=== PATIENT | male | born 1965 | race Caucasian/White ===

== ENCOUNTER 2020-06-02 16:01 | Inpatient (IN) | payer BC ==
[2020-06-02] MEDS ORDERED: ACETAMINOPHEN 1000 MG/100 ML VIAL (NON FORMULARY) IVPB ONE (18:22)
[2020-06-02] MEDS ORDERED: DEXAMETHASONE SOD PHOSPHATE 20 MG/5 ML VIAL IVPB ONE (18:30)
[2020-06-02 19:22] LABS: BASO % 0.2 % (0-2.0); EOS % 1.1 % (0-4.5); HEMATOCRIT 41.6 % (35.4-49); HEMOGLOBIN 13.9 GM/dL (11.7-16.9); LYMPH % 7.4 % (8-40); MCH 28.5 pg (25.7-33.7); MCHC 33.4 g/dl (32.0-35.9); MEAN CELL VOLUME 85.4 fl (80-96); MEAN PLT VOLUME 8.4 fl (7.5-11.1); MONO % 3.2 % (3.8-10.2); NEUT % 88.1 % (42.8-82.8); PLATELET COUNT 365 K/MM3 (134-434); RBC 4.87 M/mm3 (4.00-5.60); RDW 13.3 % (11.9-15.9); WHITE BLOOD COUNT 9.5 K/mm3 (4.0-10.0)
[2020-06-02 19:29] LABS: INR 1.33 (0.83-1.09); PROTHROMBIN TIME (PATIENT) 16.2 SEC (9.7-13.0)
[2020-06-02 19:31] LABS: ACTIVATED PTT 29.3 SECONDS (25.2-36.5)
[2020-06-02] MEDS ORDERED: ACETAMINOPHEN INJECTION 100 ML IVPB ONE (19:34)
[2020-06-02] MEDS ORDERED: DEXAMETHASONE SOD PHOSPHATE 10 MG/1 ML VIAL ONE (19:34)
[2020-06-02 19:41] LABS: CHLORIDE 98 mmol/L (98-107); POTASSIUM 4.4 mmol/L (3.5-5.1); SODIUM 133 mmol/L (136-145)
[2020-06-02 19:43] LABS: CALCIUM 8.5 mg/dL (8.5-10.1)
[2020-06-02 19:44] LABS: ANION GAP 9 MMOL/L (8-16); BLOOD UREA NITROGEN 15.3 mg/dL (7-18); CO2 26 mmol/L (21-32); GLUCOSE,RANDOM 248 mg/dL (74-106); MAGNESIUM 2.3 mg/dL (1.8-2.4)
[2020-06-02 19:47] LABS: SGOT/AST 54 U/L (15-37); SGPT/ALT 55 U/L (13-61)
[2020-06-02 19:48] LABS: BILIRUBIN,TOTAL 0.8 mg/dL (0.2-1)
[2020-06-02 19:49] LABS: ALK PHOS 82 U/L (45-117); N-TERMINAL BNP 24.4 pg/ml (5-125); TOT PROT 7.7 g/dl (6.4-8.2)
[2020-06-02 20:01] LABS: VENOUS BASE EXCESS -1.1 mmol/L (-2-2); VENOUS O2 SATURATION 89.3 % (70-80); VENOUS PCO2 37.9 mmHg (38-52); VENOUS PH 7.406 (7.310-7.410)
[2020-06-02 21:11] LABS: LDH 306 U/L (87-246)
[2020-06-03] MEDS ORDERED: DEXAMETHASONE SOD PHOSPHATE 10 MG/1 ML VIAL ONE (01:21)
[2020-06-03] MEDS: DEXAMETHASONE SOD PHOSPHATE 4 MG/1 ML VIAL IVPUSH SCH ×2 (01:29→10:54)
[2020-06-03 05:07] VITALS: BMI 30.9
[2020-06-03] MEDS: INSULIN SLIDING SCALE (NOVOLOG) 1 VIAL SQ SCH ×4 (06:51→21:11)
[2020-06-03 07:55] LABS: BASO % 0.2 % (0-2.0); HEMATOCRIT 37.7 % (35.4-49); HEMOGLOBIN 12.7 GM/dL (11.7-16.9); LYMPH % 9.6 % (8-40); MCH 28.4 pg (25.7-33.7); MCHC 33.6 g/dl (32.0-35.9); MEAN CELL VOLUME 84.6 fl (80-96); MEAN PLT VOLUME 8.3 fl (7.5-11.1); MONO % 2.4 % (3.8-10.2); NEUT % 87.8 % (42.8-82.8); PLATELET COUNT 369 K/MM3 (134-434); RBC 4.46 M/mm3 (4.00-5.60); RDW 12.9 % (11.9-15.9)
[2020-06-03 07:57] LABS: POTASSIUM 4.4 mmol/L (3.5-5.1)
[2020-06-03 07:59] LABS: ALBUMIN 2.6 g/dl (3.4-5.0)
[2020-06-03 08:00] LABS: CALCIUM 8.7 mg/dL (8.5-10.1)
[2020-06-03 08:01] LABS: BLOOD UREA NITROGEN 18.2 mg/dL (7-18)
[2020-06-03 08:03] LABS: CREATININE 0.8 mg/dL (0.55-1.3)
[2020-06-03 08:04] LABS: BILIRUBIN,TOTAL 0.7 mg/dL (0.2-1)
[2020-06-03 08:05] LABS: TOT PROT 6.9 g/dl (6.4-8.2)
[2020-06-03] MEDS: FAMOTIDINE 20 MG TABLET PO SCH ×2 (10:55→21:11)
[2020-06-03] MEDS: CHOLECALCIFEROL (VIT D3) 1,000 UNIT (25 MCG) TABLET PO SCH (10:55)
[2020-06-03] MEDS: ENOXAPARIN NA (PORCINE) 40 MG/0.4 ML DISP.SYRIN SQ SCH (10:55)
[2020-06-03] MEDS: ASCORBIC ACID 500 MG TABLET (FP) PO SCH ×2 (10:55→21:11)
[2020-06-03] MEDS: ZINC SULFATE 220 MG CAPSULE (FP) PO SCH (10:55)
[2020-06-03] MEDS ORDERED: REMDESIVIR 200 MG in SODIUM CHLORIDE 210 ML IVPB ONE (15:00)
[2020-06-04] MEDS: metFORMIN HCL 500 MG TABLET (FP) PO SCH ×2 (06:53→16:59)
[2020-06-04] MEDS: INSULIN SLIDING SCALE (NOVOLOG) 1 VIAL SQ SCH ×4 (06:53→21:34)
[2020-06-04 08:59] LABS: BASO % 0.1 % (0-2.0); HEMATOCRIT 36.8 % (35.4-49); HEMOGLOBIN 12.4 GM/dL (11.7-16.9); LYMPH % 7.3 % (8-40); MCH 28.8 pg (25.7-33.7); MCHC 33.7 g/dl (32.0-35.9); MEAN CELL VOLUME 85.3 fl (80-96); MONO % 5.4 % (3.8-10.2); NEUT % 87.2 % (42.8-82.8); PLATELET COUNT 408 K/MM3 (134-434); RBC 4.31 M/mm3 (4.00-5.60); RDW 12.7 % (11.9-15.9); WHITE BLOOD COUNT 16.9 K/mm3 (4.0-10.0)
[2020-06-04 09:28] LABS: POTASSIUM 4.7 mmol/L (3.5-5.1)
[2020-06-04 09:30] LABS: ALBUMIN 2.5 g/dl (3.4-5.0); CALCIUM 8.5 mg/dL (8.5-10.1)
[2020-06-04 09:31] LABS: BLOOD UREA NITROGEN 22.5 mg/dL (7-18)
[2020-06-04 09:33] LABS: CREATININE 0.9 mg/dL (0.55-1.3)
[2020-06-04 09:35] LABS: BILIRUBIN,TOTAL 0.5 mg/dL (0.2-1); TOT PROT 6.2 g/dl (6.4-8.2)
[2020-06-04] MEDS: ENOXAPARIN NA (PORCINE) 40 MG/0.4 ML DISP.SYRIN SQ SCH (10:33)
[2020-06-04] MEDS: DEXAMETHASONE SOD PHOSPHATE 4 MG/1 ML VIAL IVPUSH SCH (10:33)
[2020-06-04] MEDS: FAMOTIDINE 20 MG TABLET PO SCH ×2 (10:34→21:33)
[2020-06-04] MEDS: CHOLECALCIFEROL (VIT D3) 1,000 UNIT (25 MCG) TABLET PO SCH (10:34)
[2020-06-04] MEDS: LOSARTAN POTASSIUM 50 MG TABLET PO SCH (10:34)
[2020-06-04] MEDS: ASCORBIC ACID 500 MG TABLET (FP) PO SCH ×2 (10:34→21:33)
[2020-06-04] MEDS: ZINC SULFATE 220 MG CAPSULE (FP) PO SCH (10:34)
[2020-06-04] MEDS ORDERED: REMDESIVIR 200 MG in SODIUM CHLORIDE 210 ML IVPB ONE (14:00)
[2020-06-04] MEDS ORDERED: REMDESIVIR 100 MG in SODIUM CHLORIDE 230 ML IVPB SCH (15:00)
[2020-06-04] MEDS: REMDESIVIR 100 MG in SODIUM CHLORIDE 230 ML IVPB SCH (15:02)
[2020-06-05] MEDS: metFORMIN HCL 500 MG TABLET (FP) PO SCH ×2 (06:36→17:06)
[2020-06-05] MEDS: INSULIN SLIDING SCALE (NOVOLOG) 1 VIAL SQ SCH ×4 (06:36→21:35)
[2020-06-05 08:16] LABS: BASO % 0.4 % (0-2.0); EOS % 0.1 % (0-4.5); HEMATOCRIT 36.7 % (35.4-49); HEMOGLOBIN 12.2 GM/dL (11.7-16.9); LYMPH % 11.7 % (8-40); MCH 28.2 pg (25.7-33.7); MCHC 33.2 g/dl (32.0-35.9); MEAN PLT VOLUME 8.6 fl (7.5-11.1); MONO % 7.1 % (3.8-10.2); NEUT % 80.7 % (42.8-82.8); PLATELET COUNT 409 K/MM3 (134-434); RBC 4.31 M/mm3 (4.00-5.60); WHITE BLOOD COUNT 12.1 K/mm3 (4.0-10.0)
[2020-06-05 08:32] LABS: POTASSIUM 4.9 mmol/L (3.5-5.1)
[2020-06-05 08:38] LABS: ALBUMIN 2.7 g/dl (3.4-5.0); CALCIUM 8.4 mg/dL (8.5-10.1)
[2020-06-05 08:39] LABS: BLOOD UREA NITROGEN 21.3 mg/dL (7-18)
[2020-06-05 08:42] LABS: CREATININE 0.9 mg/dL (0.55-1.3)
[2020-06-05 08:43] LABS: BILIRUBIN,TOTAL 0.8 mg/dL (0.2-1); TOT PROT 6.5 g/dl (6.4-8.2)
[2020-06-05] MEDS: DEXAMETHASONE SOD PHOSPHATE 4 MG/1 ML VIAL IVPUSH SCH (09:52)
[2020-06-05] MEDS: CHOLECALCIFEROL (VIT D3) 1,000 UNIT (25 MCG) TABLET PO SCH (09:53)
[2020-06-05] MEDS: FAMOTIDINE 20 MG TABLET PO SCH ×2 (09:53→21:37)
[2020-06-05] MEDS: ASCORBIC ACID 500 MG TABLET (FP) PO SCH ×2 (09:53→21:38)
[2020-06-05] MEDS: ENOXAPARIN NA (PORCINE) 40 MG/0.4 ML DISP.SYRIN SQ SCH (09:53)
[2020-06-05] MEDS: LOSARTAN POTASSIUM 50 MG TABLET PO SCH (09:53)
[2020-06-05] MEDS: ZINC SULFATE 220 MG CAPSULE (FP) PO SCH (09:53)
[2020-06-05] MEDS: REMDESIVIR 100 MG in SODIUM CHLORIDE 230 ML IVPB SCH (14:17)
[2020-06-06] MEDS: metFORMIN HCL 500 MG TABLET (FP) PO SCH ×2 (06:22→16:45)
[2020-06-06] MEDS: INSULIN SLIDING SCALE (NOVOLOG) 1 VIAL SQ SCH ×4 (06:23→21:30)
[2020-06-06 08:07] LABS: BASO % 0.4 % (0-2.0); HEMATOCRIT 38.7 % (35.4-49); HEMOGLOBIN 13.1 GM/dL (11.7-16.9); LYMPH % 16.2 % (8-40); MCH 28.8 pg (25.7-33.7); MCHC 33.9 g/dl (32.0-35.9); MEAN PLT VOLUME 9.1 fl (7.5-11.1); MONO % 6.1 % (3.8-10.2); NEUT % 77.3 % (42.8-82.8); PLATELET COUNT 428 K/MM3 (134-434); RBC 4.55 M/mm3 (4.00-5.60); WHITE BLOOD COUNT 10.1 K/mm3 (4.0-10.0)
[2020-06-06 08:13] LABS: POTASSIUM 5.4 mmol/L (3.5-5.1)
[2020-06-06 08:25] LABS: ALBUMIN 2.7 g/dl (3.4-5.0); BLOOD UREA NITROGEN 20.9 mg/dL (7-18); CALCIUM 8.6 mg/dL (8.5-10.1)
[2020-06-06 08:29] LABS: CREATININE 0.9 mg/dL (0.55-1.3)
[2020-06-06 08:30] LABS: BILIRUBIN,TOTAL 0.8 mg/dL (0.2-1); TOT PROT 6.6 g/dl (6.4-8.2)
[2020-06-06] MEDS: ASCORBIC ACID 500 MG TABLET (FP) PO SCH ×2 (10:55→21:30)
[2020-06-06] MEDS: CHOLECALCIFEROL (VIT D3) 1,000 UNIT (25 MCG) TABLET PO SCH (10:55)
[2020-06-06] MEDS: LOSARTAN POTASSIUM 50 MG TABLET PO SCH (10:55)
[2020-06-06] MEDS: ENOXAPARIN NA (PORCINE) 40 MG/0.4 ML DISP.SYRIN SQ SCH (10:55)
[2020-06-06] MEDS: ZINC SULFATE 220 MG CAPSULE (FP) PO SCH (10:55)
[2020-06-06] MEDS: DEXAMETHASONE SOD PHOSPHATE 4 MG/1 ML VIAL IVPUSH SCH (10:56)
[2020-06-06] MEDS: FAMOTIDINE 20 MG TABLET PO SCH ×2 (11:16→21:30)
[2020-06-06] MEDS: REMDESIVIR 100 MG in SODIUM CHLORIDE 230 ML IVPB SCH (14:35)
[2020-06-07] MEDS: INSULIN SLIDING SCALE (NOVOLOG) 1 VIAL SQ SCH ×4 (06:00→22:36)
[2020-06-07] MEDS: metFORMIN HCL 500 MG TABLET (FP) PO SCH ×2 (06:00→16:34)
[2020-06-07 06:37] LABS: BASO % 0.4 % (0-2.0); HEMATOCRIT 40.5 % (35.4-49); HEMOGLOBIN 13.8 GM/dL (11.7-16.9); LYMPH % 16.7 % (8-40); MCH 28.6 pg (25.7-33.7); MCHC 34.1 g/dl (32.0-35.9); MEAN CELL VOLUME 84.1 fl (80-96); MEAN PLT VOLUME 8.6 fl (7.5-11.1); MONO % 6.9 % (3.8-10.2); PLATELET COUNT 462 K/MM3 (134-434); RBC 4.82 M/mm3 (4.00-5.60); RDW 13.2 % (11.9-15.9); WHITE BLOOD COUNT 10.8 K/mm3 (4.0-10.0)
[2020-06-07 07:00] LABS: POTASSIUM 4.9 mmol/L (3.5-5.1)
[2020-06-07 07:07] LABS: CALCIUM 8.3 mg/dL (8.5-10.1)
[2020-06-07 07:08] LABS: ALBUMIN 2.9 g/dl (3.4-5.0); BLOOD UREA NITROGEN 21.2 mg/dL (7-18)
[2020-06-07 07:11] LABS: CREATININE 0.9 mg/dL (0.55-1.3)
[2020-06-07 07:12] LABS: BILIRUBIN,TOTAL 1.1 mg/dL (0.2-1); TOT PROT 6.6 g/dl (6.4-8.2)
[2020-06-07] MEDS: ASCORBIC ACID 500 MG TABLET (FP) PO SCH ×2 (09:45→22:37)
[2020-06-07] MEDS: CHOLECALCIFEROL (VIT D3) 1,000 UNIT (25 MCG) TABLET PO SCH (09:45)
[2020-06-07] MEDS: LOSARTAN POTASSIUM 50 MG TABLET PO SCH (09:45)
[2020-06-07] MEDS: ZINC SULFATE 220 MG CAPSULE (FP) PO SCH (09:45)
[2020-06-07] MEDS: ENOXAPARIN NA (PORCINE) 40 MG/0.4 ML DISP.SYRIN SQ SCH (09:46)
[2020-06-07] MEDS: DEXAMETHASONE SOD PHOSPHATE 4 MG/1 ML VIAL IVPUSH SCH (09:46)
[2020-06-07] MEDS ORDERED: INSULIN (NOVOLOG) ASPART 100 UNITS/ML 10ML VIAL ONE (11:01)
[2020-06-07] MEDS: FAMOTIDINE 20 MG TABLET PO SCH ×2 (11:04→22:37)
[2020-06-07] MEDS: REMDESIVIR 100 MG in SODIUM CHLORIDE 230 ML IVPB SCH (15:35)
[2020-06-08] MEDS: metFORMIN HCL 500 MG TABLET (FP) PO SCH (06:20)
[2020-06-08] MEDS: INSULIN SLIDING SCALE (NOVOLOG) 1 VIAL SQ SCH ×2 (06:21→12:22)
[2020-06-08] MEDS: DEXAMETHASONE SOD PHOSPHATE 4 MG/1 ML VIAL IVPUSH SCH (10:23)
[2020-06-08] MEDS: FAMOTIDINE 20 MG TABLET PO SCH (10:23)
[2020-06-08] MEDS: ASCORBIC ACID 500 MG TABLET (FP) PO SCH (10:23)
[2020-06-08] MEDS: CHOLECALCIFEROL (VIT D3) 1,000 UNIT (25 MCG) TABLET PO SCH (10:23)
[2020-06-08] MEDS: LOSARTAN POTASSIUM 50 MG TABLET PO SCH (10:23)
[2020-06-08] MEDS: ENOXAPARIN NA (PORCINE) 40 MG/0.4 ML DISP.SYRIN SQ SCH (10:23)
[2020-06-08] MEDS: ZINC SULFATE 220 MG CAPSULE (FP) PO SCH (10:23)
[2020-06-08 10:51] VITALS: BP 120/78; PULSE 105; TEMP 98.1
== END 2020-06-08 15:00 | disposition home or self-care (01) | DRG 177 ==
LOC: JER 16:01 → JERBED 19:59 → J6WEST-2 06-03 04:23 → J5S 06-07 10:44
PROVIDERS: ADMIT Internal Medicine; ATTEND Internal Medicine
PROC: 8E0ZXY6 Isolation (ICD-10-PCS; 2020-06-02)
PROC: XW13325 Transfusion of Convalescent Plasma (Nonautologous) into Peripheral Vein, Percutaneous Approach, New Technology Group 5 (ICD-10-PCS; principal; 2020-06-04)
PROC: XW033E5 Introduction of Remdesivir Anti-infective into Peripheral Vein, Percutaneous Approach, New Technology Group 5 (ICD-10-PCS; 2020-06-04)
DX: U07.1 COVID-19 (principal); J12.89 Other viral pneumonia; R09.02 Hypoxemia; I10 Essential (primary) hypertension; E11.9 Type 2 diabetes mellitus without complications; E66.9 Obesity, unspecified; Z68.31 Body mass index [BMI] 31.0-31.9, adult; E78.5 Hyperlipidemia, unspecified; R43.9 Unspecified disturbances of smell and taste
CPT/HCPCS: 36415; 36430; 71045-TC-FY; 71250-TC; 80053; 82550; 82553; 82728; 82803; 82962; 83615; 83735; 83880; 84484; 85025; 85379; 85384; 85610; 85730; 86140; 86850; 86900; 86901; 87040; 93005; 93010; 94010; 99285-25; C9399; C9803; J0131; P9017; U0003